=== PATIENT | female | born 1960 | race Two or more races ===

== ENCOUNTER → 2024-06-06 | Outpatient (CLI) | payer MEDICAID, SELFPAY ==
--- NOTE | 2024-06-06 10:00 | XR_ITS ---
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
--- NOTE | 2024-06-06 10:30 | XR_ITS ---
Examination: MRI lumbar spine with intravenous contrast TECHNIQUE: Multiple axial sagittal MR images post intravenous contrast, 30 cc gadolinium Exam date and time: June 06, 2024 11:00 AM Comparison 11/17/2023 INDICATIONS: History enhancing extra medullary intradural tumors, history lumbar spine surgery FINDINGS: Satisfactory alignment lumbar vertebral bodies Soft tissue enhancement at the laminectomy sites L4, L5 No current definite osseous intramedullary or extramedullary intradural tumor enhancement No lumbar disc narrowing No spondylolisthesis IMPRESSION: Postoperative change L4-L5 No definite abnormal enhancing intramedullary or extramedullary intradural tumor
== END | disposition home or self-care (01) ==
PROVIDERS: PCP Physician Assistant; Referring Provider Physician Assistant; Visit Provider Physician Assistant
DX: D49.2 Neoplasm of unspecified behavior of bone, soft tissue, and skin (principal); T81.89XA Other complications of procedures, not elsewhere classified, initial encounter
CPT/HCPCS: 72142; 72149; A9579

== ENCOUNTER → 2024-06-07 | Outpatient (CLI) | payer MEDICAID, SELFPAY ==
--- NOTE | 2024-06-07 14:00 | XR_ITS ---
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
== END | disposition home or self-care (01) ==
PROVIDERS: PCP Physician Assistant; Referring Provider Physician Assistant; Visit Provider Physician Assistant
DX: D49.2 Neoplasm of unspecified behavior of bone, soft tissue, and skin (principal)
CPT/HCPCS: 72147; A9579